=== PATIENT | female | born 1965 | race Caucasian/White ===

== ENCOUNTER 2018-05-17 07:46 | Day surgery (SDC) | payer OTHER ==
[2018-05-17] MEDS ORDERED: NS 1,000 ML IV (08:00)
[2018-05-17] MEDS ORDERED: LIDOCAINE 2% INJ 100 MG/5 ML SDV (FOR ANES.) As Ordered (08:19)
[2018-05-17] MEDS ORDERED: PROPOFOL 500 MG/50 ML VIAL As Ordered (08:19)
== END 2018-05-17 09:05 | disposition home or self-care (01) ==
LOC: M OPP 07:46
DX: Z12.11 Encounter for screening for malignant neoplasm of colon (principal); D12.5 Benign neoplasm of sigmoid colon; M54.2 Cervicalgia; G89.29 Other chronic pain; M19.90 Unspecified osteoarthritis, unspecified site; F33.9 Major depressive disorder, recurrent, unspecified; F41.9 Anxiety disorder, unspecified; R01.1 Cardiac murmur, unspecified; Z86.010 Personal history of colon polyps; Z98.890 Other specified postprocedural states; Z85.3 Personal history of malignant neoplasm of breast; Z79.899 Other long term (current) drug therapy
CPT/HCPCS: 45385

== ENCOUNTER → 2019-12-04 | Outpatient (REF) | payer OTHER ==
[~2019-12-04] MED LIST: BUPR300T92 PO; ZOLP5TAB PO
== END ==
LOC: M WUC 15:56
PROVIDERS: ATTEND Nurse Practitioner Family
DX: Z20.828 Contact with and (suspected) exposure to other viral communicable diseases (principal); Z11.59 Encounter for screening for other viral diseases

== ENCOUNTER → 2020-09-09 | Outpatient (CLI) | payer OTHER ==
--- NOTE | 2020-09-09 12:51 | REP ---
INDICATION: THYROID NODULES. COMPARISON: None. TECHNIQUE: Real-time sonographic evaluation of thyroid performed. FINDINGS: Right lobe of the thyroid measures 5.8 x 1.9 x 1.4 cm and left lobe 5.3 x 1.8 x 2.0 cm. A lobulated hypoechoic nodule contains a microcalcification in the right upper pole measuring 2.0 x 1.1 x 1.7 cm. Just inferior to that there is a solid hypoechoic nodule with a small cystic component measuring 1.1 x 0.5 x 0.5 cm. In the right lower pole there is a lobulated hypoechoic nodule with small cystic component measuring 2.0 x 0.7 x 1.0 cm. In the left upper pole there is a solid mildly hypoechoic nodule containing couple of tiny cystic components internally, measuring 1.0 x 0.8 x 1.0 cm. In the mid left lobe there is a cyst with thickened internal septations measuring 2.1 x 1.4 x 1.6 cm. There is an adjacent hypoechoic solid-appearing nodule 6 mm in diameter. IMPRESSION: Mild thyromegaly. Bilateral cysts and nodules as discussed above. The largest nodule in the right upper pole contains a microcalcification and has lobulated margins. This is a TR 5 lesion according to TI-RADS criteria. Fine needle aspiration is recommended. In the right lower pole the complex lobulated nodule is categorized as a TR 4 lesion for which fine needle aspiration is recommended. The other nodules do not meet criteria for FNA recommendation. <Electronically signed by Jad Devine > 09/09/20 [id number]
== END ==
LOC: M RAD 11:02
PROVIDERS: ATTEND Internal Medicine
DX: E04.1 Nontoxic single thyroid nodule (principal)

== ENCOUNTER → 2021-12-01 | Outpatient (REF) | payer OTHER | LOC: M LAB REF 16:15 | PROVIDERS: ATTEND Internal Medicine | DX: R73.09 Other abnormal glucose (principal) ==

== ENCOUNTER → 2021-12-06 | Outpatient (REF) | payer OTHER | LOC: M SFHCDERM 17:42 | PROVIDERS: ATTEND Nurse Practitioner Family | DX: L82.1 Other seborrheic keratosis (principal) ==

== ENCOUNTER → 2023-10-05 | Outpatient (CLI) | payer OTHER | LOC: M WHC 13:55 | PROVIDERS: ATTEND Internal Medicine | DX: Z13.820 Encounter for screening for osteoporosis (principal) ==

== ENCOUNTER 2024-03-25 07:34 | Day surgery (SDC) | payer OTHER ==
[~2024-03-25] VITALS: Ht 166.4 cm; Wt 69.4 kg
[2024-03-25] MEDS: NS 1,000 ML IV ONE (06:00)
[~2024-03-25 07:34] MED LIST changes: +BUPR-597 PO; -BUPR300T92 PO; +ESZO1TAB6 PO; +LEXA5TAB13 PO; +NEUR300C PO
[2024-03-25] MEDS ORDERED: propofoL 200 MG/20 ML VIAL As Ordered ONE (08:12)
[2024-03-25 09:41] VITALS: BP 147/70; O2SAT 97
== END 2024-03-25 09:52 | disposition home or self-care (01) ==
LOC: M OPP 07:34
PROVIDERS: ATTEND Internal Medicine Gastroenterology
DX: Z12.11 Encounter for screening for malignant neoplasm of colon (principal); K63.5 Polyp of colon; Z86.0100 Personal history of colon polyps, unspecified